=== PATIENT | female | born 1985 | race African-American/Black ===

== ENCOUNTER 2017-10-24 10:28 | Emergency (ER) | payer OTHER ==
[~2017-10-24] VITALS: Ht 160 cm; Wt 54.4 kg
--- NOTE | 2017-10-24 11:02 | PHYS DOC ---
Past History Past Medical History: Asthma Past Surgical History: No Surgical History Smoking: Non-smoker Alcohol Use: Occasionally Drug Use: None Adult General Chief Complaint Chief Complaint: COUGH [facility] HPI 32-year-old female patient with history of asthma complaining of nonproductive cough since yesterday with one episode of vomiting after cough. Patient complaining of sore throat and generalized weakness without fever, diarrhea, myalgia, sick contact, . Patient states she took her home nebulizer without improvement of her condition. Patient works at [employer] and was sent home because of cough. Review of Systems Review of Systems Constitutional: Denies fever or chills [] Eyes: Denies change in visual acuity, redness, or eye pain [] HENT: Reports sore throat and nasal congestion Respiratory: Reports cough and shortness of breath Cardiovascular: No additional information not addressed in HPI [] GI: Denies abdominal pain, nausea, bloody stools or diarrhea [] : Denies dysuria or hematuria [] Musculoskeletal: Denies back pain or joint pain [] Integument: Denies rash or skin lesions [] Neurologic: Denies headache, focal weakness or sensory changes [] Endocrine: Denies polyuria or polydipsia [] All other systems were reviewed and found to be within normal limits, except as documented in this note. Current Medications Current Medications Current Medications Medications (Trade) Dose Ordered Sig/Addi Start Time Stop Time Status Last Admin Dose Admin Albuterol/ Ipratropium (Duoneb) 3 ml 1X ONCE 10/24/17 11:00 10/24/17 11:01 UNV Benzonatate (Tessalon Perle) 200 mg 1X ONCE 10/24/17 11:00 10/24/17 11:01 UNV Methylprednisolone Sodium Succinate (SOLU-Medrol 125MG VIAL) 125 mg 1X ONCE 10/24/17 11:00 10/24/17 11:01 UNV Allergies Allergies Allergies Coded Allergies Type Severity Reaction Last Updated Verified No Known Drug Allergies 10/24/17 No Physical Exam Physical Exam Constitutional: Well developed, well nourished,mild distress, non-toxic appearance. [] HENT: Normocephalic, atraumatic, bilateral external ears normal, oropharynx moist, no oral exudates, nose normal. [] Eyes: PERRLA, EOMI, conjunctiva normal, no discharge. [] Neck: Normal range of motion, no tenderness, supple, no stridor. [] Cardiovascular: Tachycardia, no murmur [] Lungs & Thorax: Bilateral breath sounds clear to auscultation [] Abdomen: Bowel sounds normal, soft, no tenderness, no masses, no pulsatile masses. [] Skin: Warm, dry, no erythema, no rash. [] Back: No tenderness, no CVA tenderness. [] Extremities: No tenderness, no cyanosis, no clubbing, ROM intact, no edema. [] Neurologic: Alert and oriented X 3, normal motor function, normal sensory function, no focal deficits noted. [] Psychologic: Affect normal, judgement normal, mood normal. [] Current Patient Data Vital Signs Vital Signs Date Time Temp Pulse Resp B/P (MAP) Pulse Ox O2 Delivery O2 Flow Rate FiO2 10/24/17 10:28 98.5 120 22 97 Room Air EKG EKG [] Radiology/Procedures Radiology/Procedures [] Course & Med Decision Making Course & Med Decision Making Pertinent Labs reviewed. (See chart for details) Evaluation of patient in ER showed 32-year-old female patient with history of asthma complaining of dry cough and shortness of breath for the last 2 days that not getting better with home inhalers. Patient had stable vital signs in ER and felt better with treatment in ER with Solu-Medrol and DuoNeb. Flu test was negative. Plan discharge patient home with diagnosis of asthma exacerbation. Dragon Disclaimer Dragon Disclaimer This electronic medical record was generated, in whole or in part, using a voice recognition dictation system. Departure Departure: Impression: Primary Impression: Asthma exacerbation attacks Disposition: HOME, SELF-CARE (At 1129) Condition: IMPROVED Referrals: SAMANTHA JOHNSON DO (PCP) Patient Instructions: Asthma, Acute Bronchospasm Additional Instructions: Drink plenty of liquids Follow-up with your primary care physician in 3-5 days Return to ER if not getting better Scripts Albuterol Sulfate (ALBUTEROL SULFATE NEB SOLN ) 2.5 Mg/3 Ml Vial.neb 1 VIAL NEB PRN Q4HRS, #25 VIAL Prov: MERYL REIS MD 10/24/17 Benzonatate (TESSALON PERLE) 100 Mg Capsule 1 CAP PO TID, #21 CAP Prov: MERYL REIS MD 10/24/17 Methylprednisolone (MEDROL) 4 Mg Tab.ds.pk 1 PKG PO UD, #1 PKG Prov: MERYL REIS MD 10/24/17 MERYL REIS MD Oct 24, 2017 11:02
[2017-10-24] MEDS ORDERED: BENZONATATE 100 MG CAPSULE. PO ONE (11:15)
[2017-10-24] MEDS ORDERED: methylPREDNISolone SOD SUCC PF 125 MG/2 ML VIAL. IM ONE (11:15)
[2017-10-24] MEDS ORDERED: IPRATRPIUM/ALBUTEROL 0.5/2.5MG 3 ML NEBU. NEB ONE (11:15)
[2017-10-24 11:20] LABS: INFLUENZA A PATIENT NEGATIVE (NEGATIVE); INFLUENZA B PATIENT NEGATIVE (NEGATIVE)
[2017-10-24 11:27] VITALS: BP 113/71
[2017-10-24] MEDS ORDERED: BENZ100C PO (11:30)
[2017-10-24] MEDS ORDERED: METH4TAB2 PO (11:30)
[2017-10-24] MEDS ORDERED: ALBU2.5V5 NEB (11:35)
== END 2017-10-24 11:35 | disposition home or self-care (01) ==
LOC: ER 10:28
DX: J45.901 Unspecified asthma with (acute) exacerbation (principal)
CPT/HCPCS: 87804; 94640; 96372; 99284; J2930; J7620

== ENCOUNTER 2018-10-14 15:04 | Emergency (ER) | payer OTHER ==
[~2018-10-14] VITALS: Ht 154.9 cm; Wt 64.8 kg
[~2018-10-14 15:04] MED LIST: ALBU2.5V5 NEB; BENZ100C PO; METH4TAB2 PO
[2018-10-14 15:06] VITALS: BP 121/66
[2018-10-14] MEDS ORDERED: METH4TAB2 PO (15:43)
[2018-10-14] MEDS ORDERED: HYDR115S2 PO (15:43)
[2018-10-14] MEDS ORDERED: AZIT250T PO (15:43)
--- NOTE | 2018-10-14 15:44 | PHYS DOC ---
Past History Past Medical History: Asthma Past Surgical History: No Surgical History Smoking: Non-smoker Alcohol Use: None Drug Use: None Adult General Chief Complaint Chief Complaint: COUGH [facility] HPI Patient is a 33 year old female with history of asthma who presents with obtaining of cough and shortness of breath. Patient complaining of nonproductive cough for more than one week with sore throat and nasal congestion. Patient complaining of lower abdominal pain since this morning as a constant pain that getting worse with cough. The patient complaining of nausea and posttussive vomiting. Patient denies fever and chills, chest pain, urinary symptoms, vaginal bleeding or discharge, , sick contact. Review of Systems Review of Systems Constitutional: Denies fever or chills [] Eyes: Denies change in visual acuity, redness, or eye pain [] HENT: Denies nasal congestion, reports sore throat Respiratory: Reports cough and shortness of breath Cardiovascular: No additional information not addressed in HPI [] GI: Reports abdominal pain, nausea, vomiting, denies bloody stools or diarrhea [ ] : Denies dysuria or hematuria [] Musculoskeletal: Denies back pain or joint pain [] Integument: Denies rash or skin lesions [] Neurologic: Denies headache, focal weakness or sensory changes [] Endocrine: Denies polyuria or polydipsia [] All other systems were reviewed and found to be within normal limits, except as documented in this note. Allergies Allergies Allergies Coded Allergies Type Severity Reaction Last Updated Verified No Known Drug Allergies 10/14/18 No Physical Exam Physical Exam Constitutional: Well developed, well nourished, mild acute distress, non-toxic appearance. [] HENT: Normocephalic, atraumatic, bilateral external ears normal, oropharynx moist, no oral exudates, nose normal. [] Eyes: PERRLA, EOMI, conjunctiva normal, no discharge. [] Neck: Normal range of motion, no tenderness, supple, no stridor. [] Cardiovascular:Heart rate regular rhythm, no murmur [] Lungs & Thorax: Bilateral breath sounds clear to auscultation [] Abdomen: Bowel sounds normal, soft, no tenderness, no masses, no pulsatile masses. [] Skin: Warm, dry, no erythema, no rash. [] Back: No tenderness, no CVA tenderness. [] Extremities: No tenderness, no cyanosis, no clubbing, ROM intact, no edema. [] Neurologic: Alert and oriented X 3, normal motor function, normal sensory function, no focal deficits noted. [] Psychologic: Affect normal, judgement normal, mood normal. [] Current Patient Data Vital Signs Vital Signs Date Time Temp Pulse Resp B/P (MAP) Pulse Ox O2 Delivery O2 Flow Rate FiO2 10/14/18 15:06 98.6 80 16 98 Room Air EKG EKG [] Radiology/Procedures Radiology/Procedures [] Course & Med Decision Making Course & Med Decision Making Pertinent Labs reviewed. (See chart for details) Evaluation of patient in ER showed 33-year-old female patient with complaining of nonproductive cough for more than one week and posttussive vomiting. Patient complaining of lower abdominal pain since this morning. Patient had unremarkable physical exam except for dry cough during evaluation. UA was unremarkable. Discharge patient home to diagnose of asthma exacerbation and acute bronchitis. Dragon Disclaimer Dragon Disclaimer This electronic medical record was generated, in whole or in part, using a voice recognition dictation system. Departure Departure: Impression: Primary Impression: Acute asthmatic bronchitis Disposition: HOME, SELF-CARE (154) Condition: STABLE Referrals: SAMANTHA JOHNSON DO (PCP) Patient Instructions: Acute Bronchitis, Asthma Attacks, Prevention, Asthma, Adult Additional Instructions: Drink plenty of liquids Follow-up with your primary care physician in 3-5 days Return to ER if not getting better Scripts Azithromycin (ZITHROMAX) 250 Mg Tablet 1 PKG PO UD for infection, #1 PKG Prov: MERYL REIS MD 10/14/18 Hydrocodone/Chlorphen P-Stirex (Tussionex Pennkinetic Susp) 115 Ml Casandra.er.12h 5 ML PO BID for cough and congestion, #60 ML Prov: MERYL REIS MD 10/14/18 Methylprednisolone (MEDROL) 4 Mg Tab.ds.pk 1 PKG PO UD for inflammation, #1 PKG Prov: MERYL REIS MD 10/14/18 MERYL REIS MD Oct 14, 2018 15:44
[2018-10-14 17:22] LABS: CLARITY,URINE CLEAR; COLOR,URINE YELLOW
[2018-10-14 17:23] LABS: BILIRUBIN,URINE NEG (NEG); GLUCOSE,URINE NEG (NEG); NITRITE,URINE NEG (NEG); UROBILINOGEN,URINE 4 mg/dL (0.2 mg/dL)
== END 2018-10-14 15:50 | disposition home or self-care (01) ==
LOC: ER 15:04
DX: J45.909 Unspecified asthma, uncomplicated (principal); R10.30 Lower abdominal pain, unspecified; R11.2 Nausea with vomiting, unspecified
CPT/HCPCS: 81003; 99283

== ENCOUNTER 2019-08-07 10:11 | Emergency (ER) | payer OTHER ==
[~2019-08-07] VITALS: Ht 154.9 cm; Wt 65.3 kg
[~2019-08-07 10:11] MED LIST changes: +AZIT250T PO; +HYDR115S2 PO
[2019-08-07] MEDS ORDERED: IV NORMAL SALINE 1,000ML 1,000 ML IV ONE ×2 (10:45)
[2019-08-07 10:56] LABS: BASO # 0.1 x10^3/uL (0.0-0.2); BASO % 0 % (0-3); EOS % 0 % (0-3); HEMATOCRIT 37.7 % (36.0-47.0); HEMOGLOBIN 12.7 g/dL (12.0-15.5); LYMPH # 1.7 x10^3/uL (1.0-4.8); LYMPH % 8 % (24-48); MEAN CORPUSCULAR HEMOGLOBIN 28 pg (25-35); MEAN CORPUSCULAR HGB CONC 34 g/dL (31-37); MEAN CORPUSCULAR VOLUME 84 fL (79-100); MONO # 2.7 x10^3/uL (0.0-1.1); MONO % 13 % (0-9); NEUT # 16.7 x10^3uL (1.8-7.7); NEUT % 79 % (31-73); PLATELET COUNT 322 x10^3/uL (140-400); RED CELL DISTRIBUTION WIDTH 16.1 % (11.5-14.5); WHITE BLOOD COUNT 21.1 x10^3/uL (4.0-11.0)
[2019-08-07] MEDS ORDERED: ACETAMINOPHEN 500 MG TABLET PO ONE (11:00)
[2019-08-07] MEDS ORDERED: KETOROLAC 15 MG/ML VIAL. IV ONE (11:00)
[2019-08-07 11:08] LABS: ALBUMIN 3.6 g/dL (3.4-5.0); ALBUMIN/GLOBULIN RATIO 0.9 (1.0-1.7); CALCIUM 8.6 mg/dL (8.5-10.1); CREATININE 0.7 mg/dL (0.6-1.0); GFR 117.3; POTASSIUM 3.1 mmol/L (3.5-5.1); TOTAL BILIRUBIN 0.7 mg/dL (0.2-1.0); TOTAL PROTEIN 7.6 g/dL (6.4-8.2)
[2019-08-07 11:10] LABS: INFLUENZA A PATIENT NEGATIVE (NEGATIVE); INFLUENZA B PATIENT NEGATIVE (NEGATIVE)
[2019-08-07 11:17] LABS: CLARITY,URINE TURBID; COLOR,URINE YELLOW
[2019-08-07 11:18] LABS: BILIRUBIN,URINE SMALL (NEG); GLUCOSE,URINE NEG (NEG)
[2019-08-07 11:19] LABS: BACTERIA,URINE MANY /HPF (0-FEW); GRANULAR CASTS,URINE OCC /HPF; HYALINE CASTS, URINE FEW /HPF; NITRITE,URINE NEG (NEG); RBC,URINE >40 /HPF (0-2); SQUAMOUS EPITHELIAL CELL,UR MOD /LPF; TRICHOMONAS,URINE PRESENT; UROBILINOGEN,URINE 4 mg/dL (0.2 mg/dL); WBC,URINE >40 /HPF (0-4)
--- NOTE | 2019-08-07 11:25 | PHYS DOC ---
Past History Past Medical History: Asthma Past Surgical History: No Surgical History Smoking: Non-smoker Alcohol Use: None Drug Use: None Adult General Chief Complaint Chief Complaint: WEAKNESS/GENERALIZED HPI HPI Patient is a 34-year-old female presenting with chief complaint of flank pain left side headache fever for 5 days no cough has been did have respiratory issues recently but she has not had any of those symptoms no dysuria never felt this way before no abdominal pain no vomiting otherwise healthy just a constant dull left sided nonradiating flank pain and feeling fevers for 5 days Review of Systems Review of Systems Constitutional: Eyes: Denies change in visual acuity, redness, or eye pain [] HENT: Denies nasal congestion or sore throat [] Respiratory: Denies cough or shortness of breath [] Cardiovascular: No additional information not addressed in HPI [] GI: Denies abdominal pain, nausea, vomiting, bloody stools or diarrhea [] : Musculoskeletal: Endocrine: Denies polyuria or polydipsia [] All other systems were reviewed and found to be within normal limits, except as documented in this note. Current Medications Current Medications Current Medications Medications (Trade) Dose Ordered Sig/Addi Start Time Stop Time Status Last Admin Dose Admin Acetaminophen (Tylenol) 1,000 mg 1X ONCE 08/07/19 11:00 08/07/19 11:01 DC 08/07/19 10:51 1,000 MG Ketorolac Tromethamine (Toradol 15mg Vial) 15 mg 1X ONCE 08/07/19 11:00 08/07/19 11:01 DC 08/07/19 10:52 15 MG Sodium Chloride 1,000 ml @ 1,000 mls/hr 1X ONCE 08/07/19 10:45 08/07/19 11:44 Allergies Allergies Allergies Coded Allergies Type Severity Reaction Last Updated Verified No Known Drug Allergies 10/14/18 No Physical Exam Physical Exam Constitutional: Well developed, well nourished, moderate distress, non-toxic appearance. [] HENT: Normocephalic, atraumatic, bilateral external ears normal, oropharynx moist, no oral exudates, nose normal. [] Eyes: PERRLA, EOMI, conjunctiva normal, no discharge. [] Neck: Normal range of motion, no tenderness, supple, no stridor. [] Cardiovascular:tachy no murmur noted Lungs & Thorax: Bilateral breath sounds clear to auscultation [] Abdomen: Bowel sounds normal, soft, no tenderness, no masses, no pulsatile masses. [] Skin: Warm, dry, no erythema, no rash. [] Back: left flank cva ttp Extremities: No tenderness, no cyanosis, no clubbing, ROM intact, no edema. [] Neurologic: Alert and oriented X 3, normal motor function, normal sensory function, no focal deficits noted. [] Psychologic: Affect normal, judgement normal, mood normal. [] Current Patient Data Vital Signs Vital Signs Date Time Temp Pulse Resp B/P (MAP) Pulse Ox O2 Delivery O2 Flow Rate FiO2 08/07/19 11:15 117 20 124/76 (92) 97 Room Air 08/07/19 10:20 102.8 * Moderate Temperature (Fahrenheit): * 102.8 degrees F (97.6-99.5) H Patient Temperature * 102.8 degrees F (97.5-99.5) H Temperature Source * Oral Blood Pressure Systolic * 112 mm Hg (100-140) Blood Pressure Diastolic * 71 mm Hg (60-100) Blood Pressure Mean * 85 mm Hg Blood Pressure Location * Right Arm Blood Pressure Source * Automatic Cuff Pulse Rate * 134 beats per minute (60-90) H Pulse Assessment Method * Monitor Respiratory Rate * 24 breaths per minute (12-24) Oxygen Delivery Method * Room Air Bedside Pulse Oximetry * 96 % Lab Results Laboratory Tests Test 08/07/19 10:30 08/07/19 10:33 Urine Collection Type Unknown Urine Color Yellow Urine Clarity Turbid Urine pH 6.0 Urine Specific [place] 1.020 Urine Protein 100 mg/dl (NEG-TRACE) Urine Glucose (UA) Neg mg/dL (NEG) Urine Ketones (Stick) >=160 mg/dL (NEG) Urine Blood Large (NEG) Urine Nitrite Neg (NEG) Urine Bilirubin Small (NEG) Urine Urobilinogen Dipstick 4 mg/dL (0.2 mg/dL) Urine Leukocyte Esterase Small (NEG) Urine RBC >40 /HPF (0-2) Urine WBC >40 /HPF (0-4) Urine Squamous Epithelial Cells Mod /LPF Urine Bacteria Many /HPF (0-FEW) Urine Hyaline Casts Few /HPF Urine Granular Casts Occ /HPF Urine Mucus Mod /LPF Urine Trichomonas Present Influenza Type A (Rapid) Negative (NEGATIVE) Influenza Type B (Rapid) Negative (NEGATIVE) White Blood Count 21.1 x10^3/uL (4.0-11.0) H Red Blood Count 4.50 x10^6/uL (3.50-5.40) Hemoglobin 12.7 g/dL (12.0-15.5) Hematocrit 37.7 % (36.0-47.0) Mean Corpuscular Volume 84 fL (79-100) Mean Corpuscular Hemoglobin 28 pg (25-35) Mean Corpuscular Hemoglobin Concent 34 g/dL (31-37) Red Cell Distribution Width 16.1 % (11.5-14.5) H Platelet Count 322 x10^3/uL (140-400) Neutrophils (%) (Auto) 79 % (31-73) H Lymphocytes (%) (Auto) 8 % (24-48) L Monocytes (%) (Auto) 13 % (0-9) H Eosinophils (%) (Auto) 0 % (0-3) Basophils (%) (Auto) 0 % (0-3) Neutrophils # (Auto) 16.7 x10^3uL (1.8-7.7) H Lymphocytes # (Auto) 1.7 x10^3/uL (1.0-4.8) Monocytes # (Auto) 2.7 x10^3/uL (0.0-1.1) H Eosinophils # (Auto) 0.0 x10^3/uL (0.0-0.7) Basophils # (Auto) 0.1 x10^3/uL (0.0-0.2) Platelet Estimate Pending Sodium Level 134 mmol/L (136-145) L Potassium Level 3.1 mmol/L (3.5-5.1) L Chloride Level 97 mmol/L (98-107) L Carbon Dioxide Level 22 mmol/L (21-32) Anion Gap 15 (6-14) H Blood Urea Nitrogen 4 mg/dL (7-20) L Creatinine 0.7 mg/dL (0.6-1.0) Estimated GFR (Cockcroft-Gault) 117.3 BUN/Creatinine Ratio 6 (6-20) Glucose Level 101 mg/dL (70-99) H Lactic Acid Level 1.2 mmol/L (0.4-2.0) Calcium Level 8.6 mg/dL (8.5-10.1) Total Bilirubin 0.7 mg/dL (0.2-1.0) Aspartate Amino Transferase (AST) 17 U/L (15-37) Alanine Aminotransferase (ALT) 23 U/L (14-59) Alkaline Phosphatase 87 U/L (46-116) Total Protein 7.6 g/dL (6.4-8.2) Albumin 3.6 g/dL (3.4-5.0) Albumin/Globulin Ratio 0.9 (1.0-1.7) L EKG EKG [] Radiology/Procedures Radiology/Procedures [] Impressions: IMPRESSION: No renal calculi, hydronephrosis or evidence of obstructive uropathy. Calcifications are present in the left pelvis consistent with phleboliths but not associated with the ureter. No other focal abnormality seen in the abdomen or pelvis. Electronically signed by: Milagros Hewitt MD (08/07/2019 12:17 PM) [facility] Course & Med Decision Making Course & Med Decision Making Pertinent Labs and Imaging studies reviewed. (See chart for details) []pyelonephritis with leukocytosis normal bp normal lactic. heart rate tachy resolved with fluids down to 100. pt felt better no kidney stone no comorbiditis offered admission for iv abx v trial of home oral therapy she strongly preferred home trial seems reasonable there was no vomiting return precautions specifically discussed, i told the pt about the leukocytosis and importance of close follow up to ensure resolution of symptoms Dragon Disclaimer Dragon Disclaimer This electronic medical record was generated, in whole or in part, using a voice recognition dictation system. Departure Departure: Impression: Primary Impression: Pyelonephritis Disposition: HOME, SELF-CARE Condition: STABLE Referrals: PCP,NO (PCP) Scripts Cephalexin (CEPHALEXIN) 500 Mg Capsule 1 CAP PO QID for pyelo, #40 CAP Prov: SOFYA CASTILLO MD 08/07/19 SOFYA CASTILLO MD Aug 07, 2019 11:25
[2019-08-07] MEDS ORDERED: metroNIDAZOLE 500 MG TABLET PO ONE (12:00)
[2019-08-07] MEDS ORDERED: ONDANSETRON PF 4 MG/2 ML VIAL. IV ONE (12:00)
[2019-08-07 12:02] LABS: U PREG PATIENT NEGATIVE (NEG)
[2019-08-07] MEDS ORDERED: IV NORMAL SALINE 50ML 50 ML ONE (12:09)
[2019-08-07] MEDS ORDERED: cefTRIAXone SODIUM 1 GM VIAL ONE (12:09)
[2019-08-07 12:17] LABS: % BANDS 14 % (0-9); % LYMPHS 3 % (24-48); % MONOS 8 % (0-10); % SEGS 75 % (35-66)
--- NOTE | 2019-08-07 12:19 | RAD ---
CT abdomen and pelvis without contrast: Reason for examination: Hematuria. Evaluate for nephrolithiasis. Helical images were obtained through the abdomen and pelvis with no intravenous or oral contrast administered. Reconstruction was performed in sagittal and coronal planes. Exposure: One or more of the following individualized dose reduction techniques were utilized for this examination: 1. Automated exposure control 2. Adjustment of the mA and/or kV according to patient size 3. Use of iterative reconstruction technique. The lung bases are clear. The heart size is normal with no pericardial effusion evident. No focal abnormality seen at the liver, spleen, adrenal glands, gallbladder or pancreas. The abdominal aorta and inferior vena cava show no gross abnormalities. The kidneys show no renal masses, renal calculi, hydronephrosis or evidence of obstructive uropathy. No abnormality seen at the appendix. There is a moderate amount of fecal material colon. There is no evidence of diverticulosis or diverticulitis. The small intestinal tract shows no abnormal dilatation or wall thickening and no bowel obstruction is seen. No abnormality seen at the stomach or duodenum. No abnormality seen at the bladder, uterus or ovaries. No free fluid or free air is seen in the abdomen or pelvis. There are calcifications in the left pelvis consistent with phleboliths but not associated with the ureter. No free fluid or free air is seen in the abdomen or pelvis. No acute bony abnormalities are seen. IMPRESSION: No renal calculi, hydronephrosis or evidence of obstructive uropathy. Calcifications are present in the left pelvis consistent with phleboliths but not associated with the ureter. No other focal abnormality seen in the abdomen or pelvis. Electronically signed by: Milagros Hewitt MD (08/07/2019 12:17 PM) [facility]
[2019-08-07 12:20] LABS: PLT ESTIMATE ADEQUATE (ADEQUATE); TOXIC GRANULATION PRESENT; TOXIC VACUOLATION PRESENT
--- NOTE | 2019-08-07 12:22 | RAD ---
AP portable chest 08/07/2019. Reason for exam: Fever. Comparison is made with a study of 11/10/2009. No infiltrate or effusion is seen. Heart size and pulmonary vascularity appear normal. IMPRESSION: No acute disease. Electronically signed by: Jalen Renee Jr., MD (08/07/2019 12:19 PM) [facility] [place]
[2019-08-07 12:25] VITALS: BP 114/67
[2019-08-07] MEDS ORDERED: CEPH500C PO (12:31)
== END 2019-08-07 12:57 | disposition home or self-care (01) ==
LOC: ER 10:11
DX: N12 Tubulo-interstitial nephritis, not specified as acute or chronic (principal); D72.829 Elevated white blood cell count, unspecified; J45.909 Unspecified asthma, uncomplicated
CPT/HCPCS: 36415; 71045; 74176; 80053; 81001; 81025; 83605; 85007; 85025; 87040; 87086; 87804; 96365; 96375; 99285; J0696; J1885; J2405; J7030

== ENCOUNTER 2020-10-08 21:09 | Emergency (ER) | payer BC, OTHER ==
[~2020-10-08] VITALS: Ht 154.9 cm; Wt 70.0 kg
[~2020-10-08 21:09] MED LIST changes: +CEPH500C PO
[2020-10-08] MEDS ORDERED: IV NORMAL SALINE 1,000ML 1,000 ML IV SCH (21:30)
[2020-10-08] MEDS ORDERED: LIDO:MAALOX 1:1 20 ML SINGLE DOSE. PO ONE (21:30)
[2020-10-08] MEDS ORDERED: ONDANSETRON PF 4 MG/2 ML VIAL. IVP ONE (21:30)
--- NOTE | 2020-10-08 21:34 | PHYS DOC ---
Past History Past Medical History: Asthma (IMELDA CHANDRA APRN) Past Surgical History: No Surgical History (IMELDA CHANDRA APRN) Smoking: Non-smoker Alcohol Use: None Drug Use: None (IMELDA CHANDRA APRN) General Adult HPI: HPI: Patient is a 35-year-old female who presents with burning, epigastric pain. Patient states that pain started 15 minutes ago. Pain is worse with laying down and has nausea. Denies vomiting or diarrhea. Patient denies taking anything at home. Patient has history of asthma. (IMELDA CHANDRA APRN) Review of Systems: Review of Systems: Constitutional: Denies fever or chills Eyes: Denies change in visual acuity HENT: Denies nasal congestion or sore throat Respiratory: Denies cough or shortness of breath Cardiovascular: Denies chest pain or edema GI: Epigastric abdominal pain, nausea, denies vomiting, bloody stools or diarrhea : Denies dysuria Musculoskeletal: Denies back pain or joint pain Integument: Denies rash Neurologic: Denies headache, focal weakness or sensory changes Endocrine: Denies polyuria or polydipsia Lymphatic: Denies swollen glands Psychiatric: Denies depression or anxiety (IMELDA CHANDRA APRN) Allergies: Allergies: Allergies Coded Allergies Type Severity Reaction Last Updated Verified No Known Drug Allergies 10/14/18 No (IMELDA CHANDRA APRN) Physical Exam: PE: Constitutional: Well developed, well nourished, no acute distress, non-toxic appearance. [] HENT: Normocephalic, atraumatic, bilateral external ears normal, oropharynx moist, no oral exudates, nose normal. [] Eyes: PERRLA, EOMI, conjunctiva normal, no discharge. [] Neck: Normal range of motion, no tenderness, supple, no stridor. [] Cardiovascular:Heart rate regular rhythm, no murmur [] Lungs & Thorax: Bilateral breath sounds clear to auscultation [] Abdomen: Bowel sounds normal, soft, epigastric tenderness Skin: Warm, dry, no erythema, no rash. [] Back: No tenderness, no CVA tenderness. [] Extremities: No tenderness, no cyanosis, no clubbing, ROM intact, no edema. [] Neurologic: Alert and oriented X 3, normal motor function, normal sensory function, no focal deficits noted. [] Psychologic: Affect normal, judgement normal, mood normal. [] (IMELDA CHANDRA APRN) EKG: EKG: [] (IMELDA CHANDRA APRN) Radiology/Procedures: Radiology/Procedures: [] (IMELDA CHANDRA APRN) Heart Score: Risk Factors: Risk Factors: DM, Current or recent (<one month) smoker, HTN, HLP, family history of CAD, obesity. Risk Scores: Score 0 - 3: 2.5% MACE over next 6 weeks - Discharge Home Score 4 - 6: 20.3% MACE over next 6 weeks - Admit for Clinical Observation Score 7 - 10: 72.7% MACE over next 6 weeks - Early Invasive Strategies (IMELDA CHANDRA APRN) Course & Med Decision Making: Course & Med Decision Making Pertinent Labs and Imaging studies reviewed. (See chart for details) []Patient is a 35-year-old female who presents with burning, epigastric pain. Patient states that pain started 15 minutes ago. Pain is worse with laying down and has nausea. Denies vomiting or diarrhea. Patient denies taking anything at home. Patient has history of asthma. Labs, UA, CT abdomen and pelvis ordered. Zofran and GI cocktail given. Reassessed patient. Patient states that she is still having a lot of pain. Pain is still epigastric. Morphine given for pain. Waiting on CT results and labs. Patient care transferred to Dr. Colindres. (IMELDA CHANDRA APRN) Course & Med Decision Making On reassessment patient was feeling better. Laboratory analysis not concerning. Urinalysis suggestive of urinary tract infection. CT of the abdomen pelvis with no acute process. Discussed all findings with patient and recommended a short course of antibiotics given UTI and follow-up as soon as she can with her primary care physician for a discussion on ED visit and possible repeat labs. Advised [place] to the ED with new or concerning symptoms. Patient grateful, verbalized understanding and agreed with plan of discharge. (SERA COLINDRES MD) Deniseon Disclaimer: Marine Disclaimer: This electronic medical record was generated, in whole or in part, using a voice recognition dictation system. (IMELDA CHANDRA APRN) Departure Departure: Impression: Primary Impression: UTI (urinary tract infection) Disposition: 02 DC/TRF OTHER SHORT TERM HOS Condition: GOOD Referrals: PCP,NO (PCP) RUBINA LEONARD MD Patient Instructions: Urinary Tract Infection Additional Instructions: Please read all the attached information. Please take your antibiotics as prescribed. Please follow-up with your primary care physician as soon as you can to update on ED visit and set up a post ER follow-up visit. Please come back to the ED with new or concerning symptoms. Scripts Cephalexin (CEPHALEXIN) 500 Mg Capsule 1 CAP PO TID for UTI for 5 Days, #15 CAP Prov: SERA COLINDRES MD 10/08/20 IMELDA CHANDRA APRN Oct 08, 2020 21:34 SERA COLINDRES MD Oct 08, 2020 22:53
[2020-10-08 22:01] LABS: BASO # 0.1 x10^3/uL (0.0-0.2); BASO % 1 % (0-3); EOS # 0.3 x10^3/uL (0.0-0.7); EOS % 2 % (0-3); HEMATOCRIT 43.9 % (36.0-47.0); HEMOGLOBIN 14.8 g/dL (12.0-15.5); LYMPH # 6.5 x10^3/uL (1.0-4.8); LYMPH % 46 % (24-48); MEAN CORPUSCULAR HEMOGLOBIN 30 pg (25-35); MEAN CORPUSCULAR HGB CONC 34 g/dL (31-37); MEAN CORPUSCULAR VOLUME 89 fL (79-100); MONO # 0.8 x10^3/uL (0.0-1.1); MONO % 6 % (0-9); NEUT # 6.5 x10^3uL (1.8-7.7); NEUT % 46 % (31-73); PLATELET COUNT 314 x10^3/uL (140-400); RED BLOOD COUNT 4.94 x10^6/uL (3.50-5.40); RED CELL DISTRIBUTION WIDTH 13.4 % (11.5-14.5); WHITE BLOOD COUNT 14.2 x10^3/uL (4.0-11.0)
[2020-10-08 22:04] LABS: PREG TEST PT QUAL NEGATIVE (NEG)
[2020-10-08 22:08] LABS: CALCIUM 9.2 mg/dL (8.5-10.1); CREATININE 0.8 mg/dL (0.6-1.0); POTASSIUM 3.5 mmol/L (3.5-5.1)
[2020-10-08 22:14] LABS: ALBUMIN 4.2 g/dL (3.4-5.0); ALBUMIN/GLOBULIN RATIO 1.2 (1.0-1.7); TOTAL BILIRUBIN 0.2 mg/dL (0.2-1.0); TOTAL PROTEIN 7.8 g/dL (6.4-8.2)
[2020-10-08 22:17] LABS: BILIRUBIN,URINE NEG (NEG); CLARITY,URINE HAZY; COLOR,URINE YELLOW; GLUCOSE,URINE NEG (NEG); NITRITE,URINE NEG (NEG)
[2020-10-08 22:18] LABS: BACTERIA,URINE MANY /HPF (0-FEW); SQUAMOUS EPITHELIAL CELL,UR MOD /LPF
[2020-10-08] MEDS ORDERED: MORPHINE SULFATE 4 MG/ML DISP.SYRIN. IV ONE (22:30)
--- NOTE | 2020-10-08 22:41 | RAD ---
Exam: Chest one view INDICATION: Abdominal pain TECHNIQUE: Frontal view of chest Comparisons: 08/07/2019 FINDINGS: The cardiomediastinal silhouette and pulmonary vessels are within normal limits. The lung and pleural spaces are clear. IMPRESSION: No acute cardiopulmonary process. Electronically signed by: Sherice Chandler MD (10/08/2020 10:39 PM) [facility]
--- NOTE | 2020-10-08 22:48 | RAD ---
Exam: CT of abdomen and pelvis without contrast INDICATION: Abdominal pain TECHNIQUE: Sequential axial images through the abdomen and pelvis obtained without IV contrast. Sagit keenan and coronal reformatted images were reconstructed from the axial data and reviewed. Comparisons: None FINDINGS: Heart size is normal. No pericardial effusion. Visualized lung bases are clear. No pleural effusion. Evaluation of solid organs is limited secondary to noncontrast technique. Liver, spleen, pancreas, gallbladder and adrenals are unremarkable. No perinephric inflammation or hydronephrosis. No renal or ureteral calculi are identified. Bladder is decompressed not well evaluated. Uterus is not enlarged. No abnormal adnexal mass. Large and small bowel are unremarkable. Appendix is normal. No free intra-abdominal air or fluid. No obstruction. Abdominal aorta has a normal course and caliber. No enlarged abdominal lymph nodes are identified. No suspicious osseous lesions or acute fractures. IMPRESSION: No acute process identified within the abdomen or pelvis. Exposure: One or more of the following in the visualized dose reduction techniques were utilized for this examination: 1. Automated exposure control 2. Adjustment of the MA and/or KV according to patient size 3. Use of iterative of reconstructive technique Electronically signed by: Sherice Chandler MD (10/08/2020 10:46 PM) [facility]
[2020-10-08] MEDS ORDERED: CEPH500C PO (22:53)
[2020-10-08 23:05] VITALS: BP 124/77
--- NOTE | 2020-10-09 00:17 | EKG ---
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
== END 2020-10-08 23:05 | disposition short-term general hospital (02) ==
LOC: ER 21:09
DX: N39.0 Urinary tract infection, site not specified (principal); J45.909 Unspecified asthma, uncomplicated
CPT/HCPCS: 36415; 71045; 74176; 80053; 81001; 81025; 83690; 84484; 84703; 85025; 87086; 93005; 96361; 96374; 96375; 99285; J2270; J2405; J7030

== ENCOUNTER 2020-11-04 06:51 | Emergency (ER) | payer BC ==
[~2020-11-04] VITALS: Ht 154.9 cm; Wt 68.9 kg
[2020-11-04] MEDS ORDERED: LIDO:MAALOX 1:1 20 ML SINGLE DOSE. PO ONE (07:15)
[2020-11-04] MEDS ORDERED: FAMOTIDINE 20 MG/2 ML VIAL IVP ONE (07:30)
[2020-11-04] MEDS ORDERED: IV NORMAL SALINE 1,000ML 1,000 ML IV ONE ×2 (07:30→10:45)
[2020-11-04] MEDS ORDERED: METOCLOPRAMIDE HCL 10 MG/2 ML VIAL. IVP ONE (07:30)
--- NOTE | 2020-11-04 07:30 | PHYS DOC ---
Past History Past Medical History: Asthma Past Surgical History: No Surgical History Smoking: Non-smoker Alcohol Use: None Drug Use: None General Adult EDM: Chief Complaint: ABDOMINAL PAIN HPI: HPI: 35 yo past medical history significant for asthma, presents the ED with complaints of upper abdominal pain has been constant, nonradiating, described as pressure, since 3 AM this morning. Patient reports she took ibuprofen but she vomited shortly after-does not take nsaids daily. Reports she has had intermittent symptoms ever since she gave 4 months ago but today sxs have been constant (, no complications). Was seen in ed for the same symptoms 1 month ago and was diagnosed with a UTI. Last bowel movement was normal, brown, 4 AM. Ate spaghetti around 9 PM last night. Also reports pain is in the middle of her thoracic spine is going all the way down. States her friend had similar symptoms and she is concerned about her gallbladder. Is on Depo-Provera (LMP-4 mns ago/after ). Denies any alcohol use or recent binge drinking. Has a PCP appointment with Dr. Otero on November 14. No FH of CTD/erhlos danlos/marfans, sudden under the age of 50, aortic aneurysm or dissection. Review of Systems: Review of Systems: Constitutional: Denies fever or chills Eyes: Denies change in visual acuity HENT: Denies nasal congestion or sore throat Respiratory: Denies cough or shortness of breath or hemoptysis Cardiovascular: Denies chest pain or edema GI: Denies melena, hematochezia, constipation, hematemesis or diarrhea : Denies dysuria Musculoskeletal: Denies joint pain or swelling, no saddle anesthesia, Integument: Denies rash Neurologic: Denies headache, neck stiffness, focal weakness or sensory changes Endocrine: Denies polyuria or polydipsia Lymphatic: Denies swollen glands Psychiatric: Denies depression or anxiety Current Medications: Current Meds: Current Medications Medications (Trade) Dose Ordered Sig/Addi Start Time Stop Time Status Last Admin Dose Admin Multi-Ingredient Mouthwash/Gargle (Gi Cocktail) 20 ml 1X ONCE 11/04/20 07:15 11/04/20 07:16 DC Allergies: Allergies: Allergies Coded Allergies Type Severity Reaction Last Updated Verified No Known Drug Allergies 10/14/18 No Physical Exam: PE: Constitutional: Well developed, well nourished, no acute distress, non-toxic appearance. HENT: Normocephalic, atraumatic, dry mucous membranes Eyes: EOMI, conjunctiva normal, no discharge. Neck: Normal range of motion, supple, Cardiovascular: S1/2 present, regular rhythm Lungs & Thorax: Speaking in full sentences, bilateral equal chest rise, no tachypnea or increased work of breathing Abdomen: soft, + epigastric ttp, positive Pandey sign on physical exam, no pain McBurney's point, no Rovsing sign, no peritonitis or rigidity, does have voluntary guarding Skin: Warm, dry, no erythema, no rash. [] Back: No tenderness, no CVA tenderness. [] Extremities: No tenderness, no cyanosis, no lower extremity edema Neurologic: Alert and oriented X 3, normal motor function, normal sensory function, no focal deficits noted. [] Psychologic: Affect normal, judgement normal, mood normal. [] EKG: EKG: [] Sinus rhythm at 66 bpm, no axis deviation, normal intervals, no T wave inversions, no ST elevations or ST depressions Radiology/Procedures: Radiology/Procedures: []IMAGING REPORT Signed PATIENT: AGUSTINA CASAS ACCOUNT: [id number] : 1985 LOCATION: ER AGE: 35 SEX: F EXAM STATUS: REG ER ORD. PHYSICIAN: LANRE CARVER DO REASON: Chest pain PROCEDURE: CHEST AP ONLY XR CHEST 1V 11/04/2020 7:07 AM INDICATION: Chest pain COMPARISON: 10/08/2020 TECHNIQUE: Portable frontal view of the chest is provided. FINDINGS: The cardiomediastinal silhouette is within normal limits. Lungs are clear. There are no significant pleural effusions. There is no pulmonary vascular congestion. No pneumothorax. No suspicious osseous abnormality. IMPRESSION: There is no acute cardiopulmonary process. Electronically signed by: Immanuel Grayson MD (11/04/2020 7:41 AM) [id number] DICTATED AND SIGNED BY: IMMANUEL GRAYSON MD DATE: 11/04/20 0741 CC: RAFAL VAZ MD; LANRE CARVER DO ~MTH0 0 IMAGING REPORT Signed PATIENT: AGUSTINA CASAS ACCOUNT: [id number] : 1985 LOCATION: ER AGE: 35 SEX: F EXAM STATUS: REG ER ORD. PHYSICIAN: LANRE CARVER DO REASON: ruq pain PROCEDURE: ABDOMEN LTD Ultrasound of the abdomen limited. HISTORY: Right upper quadrant pain Ultrasound was used to evaluate the liver, gallbladder and right upper quadrant. Pancreas was normal in appearance although the tail of the pancreas was incompletely evaluated. Common duct was mildly dilated measuring 9.5 mm at the head of the pancreas. Liver was normal in appearance. Gallbladder was distended. There are multiple gallstones at the neck of the gallbladder. In most areas the gallbladder with wall was not thickened, possible mild gallbladder wall thickening towards the fundus. Right kidney is 10.9 cm in length without a mass or hydronephrosis. There was tenderness to palpation over the gallbladder. IMPRESSION: 1. Cholelithiasis, distended gallbladder. 2. Dilated bile duct. Electronically signed by: Gualberto Roberts MD (11/04/2020 10:04 AM) [id number] DICTATED AND SIGNED BY: GUALBERTO ROBERTS MD DATE: 11/04/20 1002 CC: RAFAL VAZ MD; LANRE CARVER DO ~MTH0 0 Heart Score: C/O Chest Pain: No Risk Factors: Risk Factors: DM, Current or recent (<one month) smoker, HTN, HLP, family history of CAD, obesity. Risk Scores: Score 0 - 3: 2.5% MACE over next 6 weeks - Discharge Home Score 4 - 6: 20.3% MACE over next 6 weeks - Admit for Clinical Observation Score 7 - 10: 72.7% MACE over next 6 weeks - Early Invasive Strategies Course & Med Decision Making: Course & Med Decision Making Pertinent Labs and Imaging studies reviewed. (See chart for details) Concern for symptomatic cholelithiasis/borderline acute cholecystitis. Patient febrile, no tachycardia, no leukocytosis, does not meet SIRS criteria. Will transfer to [facility] for general surgery evaluation, I spoke to Dr. Cooney. Patient is accepted by Dr. Gamble. Patient stable at time of transfer and agrees with this plan. I have spoken with the patient and/or caregivers. I have explained the patient's condition, diagnosis and treatment plan based on the information available to me at this time. I have answered the patient's and/or caregivers questions and answered any concerns. The patient and/or caregivers have as good an understanding of the patient's diagnosis, condition and treatment plan as can be expected at this point. The patient has been stabilized within the capability of the emergency department. The patient will be transported for further care and management or will be moved to an observation or inpatient service. I have communicated with the staff or medical practitioner taking over this patient's care. Dragon Disclaimer: Dragon Disclaimer: This electronic medical record was generated, in whole or in part, using a voice recognition dictation system. Departure Departure: Impression: Primary Impression: Acute cholecystitis due to biliary calculus Additional Impression: Elevated liver function tests Disposition: 05 DC/TRF OTHER TYPE INSTITUTI (to [facility], Dr. Gamble) Condition: STABLE (to [facility], accepted by ) Referrals: RAFAL VAZ MD (PCP) LANRE CARVER DO Nov 04, 2020 07:30
--- NOTE | 2020-11-04 07:44 | RAD ---
XR CHEST 1V 11/04/2020 7:07 AM INDICATION: Chest pain COMPARISON: 10/08/2020 TECHNIQUE: Portable frontal view of the chest is provided. FINDINGS: The cardiomediastinal silhouette is within normal limits. Lungs are clear. There are no significant pleural effusions. There is no pulmonary vascular congestion. No pneumothora x. No suspicious osseous abnormality. IMPRESSION: There is no acute cardiopulmonary process. Electronically signed by: Shell Donohue MD (11/04/2020 7:41 AM) [id number]
[2020-11-04 07:47] LABS: BASO # 0.1 x10^3/uL (0.0-0.2); BASO % 0 % (0-3); EOS # 0.1 x10^3/uL (0.0-0.7); EOS % 1 % (0-3); HEMATOCRIT 45.1 % (36.0-47.0); HEMOGLOBIN 15.1 g/dL (12.0-15.5); LYMPH # 2.7 x10^3/uL (1.0-4.8); LYMPH % 20 % (24-48); MEAN CORPUSCULAR HEMOGLOBIN 30 pg (25-35); MEAN CORPUSCULAR HGB CONC 34 g/dL (31-37); MEAN CORPUSCULAR VOLUME 90 fL (79-100); MONO # 0.8 x10^3/uL (0.0-1.1); MONO % 6 % (0-9); NEUT # 9.8 x10^3uL (1.8-7.7); NEUT % 73 % (31-73); PLATELET COUNT 327 x10^3/uL (140-400); RED BLOOD COUNT 5.03 x10^6/uL (3.50-5.40); RED CELL DISTRIBUTION WIDTH 13.9 % (11.5-14.5); WHITE BLOOD COUNT 13.5 x10^3/uL (4.0-11.0)
[2020-11-04 07:59] LABS: CALCIUM 9.3 mg/dL (8.5-10.1); CREATININE 0.7 mg/dL (0.6-1.0); GFR 116.6; POTASSIUM 3.8 mmol/L (3.5-5.1)
[2020-11-04 08:05] LABS: ALBUMIN 4.2 g/dL (3.4-5.0); ALBUMIN/GLOBULIN RATIO 1.1 (1.0-1.7); TOTAL BILIRUBIN 0.9 mg/dL (0.2-1.0); TOTAL PROTEIN 8.1 g/dL (6.4-8.2)
[2020-11-04 08:11] LABS: BACTERIA,URINE FEW /HPF (0-FEW); BILIRUBIN,URINE NEG (NEG); CLARITY,URINE HAZY; COLOR,URINE AMBER; GLUCOSE,URINE NEG (NEG); NITRITE,URINE NEG (NEG); RBC,URINE 0 /HPF (0-2); SQUAMOUS EPITHELIAL CELL,UR FEW /LPF; UROBILINOGEN,URINE >=8.0 mg/dL (0.2 mg/dL)
[2020-11-04 08:41] LABS: BARBITURATES NEG (NEG); BENZODIAZEPINES NEG (NEG); CANNABINOIDS NEG (NEG); COCAINE NEG (NEG); METHADONE NEG (NEG); OPIATES NEG (NEG); PHENCYCLIDINE NEG (NEG)
[2020-11-04 08:45] LABS: AMPHETAMINE/METHAMPHETAMINE NEG (NEG)
--- NOTE | 2020-11-04 09:29 | EKG ---
[facility] ED [facility] [address] [place] [id number] Test Date: 2020-11-04 Test Time: 07:10:14 Pat Name: AGUSTINA CASAS Department: Room: Gender: F Strand [employer]: : 1985 Requested By: LANRE CARVER Order Number: [id number] Reading MD: Measurements Intervals [place] Rate: 66 P: 90 [place]: 168 QRS: 78 QRSD: 78 T: 24 QT: 408 QTc: 429 Interpretive Statements SINUS RHYTHM NORMAL ECG RI6.02 No previous ECG available for comparison
--- NOTE | 2020-11-04 10:07 | RAD ---
Ultrasound of the abdomen limited. HISTORY: Right upper quadrant pain Ultrasound was used to evaluate the liver, gallbladder and right upper quadrant. Pancreas was normal in appearance although the tail of the pancreas was incompletely evaluated. Common duct was mildly di lated measuring 9.5 mm at the head of the pancreas. Liver was normal in appearance. Gallbladder was d istended. There are multiple gallstones at the neck of the gallbladder. In most areas the gallbladder with wall was not thickened, possible mild gallbladder wall thickening towards the fundus. Right kid kanu is 10.9 cm in length without a mass or hydronephrosis. There was tenderness to palpation over the gallbladder. IMPRESSION: 1. Cholelithiasis, distended gallbladder. 2. Dilated bile duct. Electronically signed by: Gualberto Roberts MD (11/04/2020 10:04 AM) [id number]
[2020-11-04] MEDS ORDERED: IV NORMAL SALINE 50ML 50 ML ONE (10:42)
[2020-11-04] MEDS ORDERED: cefTRIAXone SODIUM 1 GM VIAL ONE (10:43)
[2020-11-04 10:57] VITALS: BP 114/69
== END 2020-11-04 13:42 | disposition short-term general hospital (02) ==
LOC: ER 06:51
DX: K80.20 Calculus of gallbladder without cholecystitis without obstruction (principal); Z20.822 Contact with and (suspected) exposure to COVID-19; K83.8 Other specified diseases of biliary tract; J45.909 Unspecified asthma, uncomplicated
CPT/HCPCS: 36415; 71045; 76705; 80053; 80307; 81001; 81025; 83690; 84484; 85025; 85379; 87426; 93005; 96361; 96365; 96368; 96375; 99285; C9803; J0696; J2765; J3490; J7030; U0003

== ENCOUNTER 2022-01-24 11:02 | Emergency (ER) | payer BC ==
[~2022-01-24] VITALS: Ht 154.9 cm; Wt 68.9 kg
[2022-01-24 11:10] VITALS: BP 137/83
[2022-01-24] MEDS ORDERED: OXYMETAZOLINE 0.05% NASAL SPRAY 30ML BOTTLE. NS ONE (11:30)
[2022-01-24] MEDS ORDERED: IBUPROFEN 600 MG TABLET. PO ONE (11:30)
--- NOTE | 2022-01-24 11:38 | PHYS DOC ---
Past History Past Medical History: Asthma Past Surgical History: No Surgical History Smoking: Non-smoker Alcohol Use: None Drug Use: None General Adult EDM: Chief Complaint: CONGESTION HPI: HPI: Patient is a 37-year-old female presents with headache, sinus pressure since yesterday. Patient states that she took Sudafed yesterday with no relief. Patient reports all of the pressure is on her right side. Patient denies taking anything for symptom control today. Denies fever. Denies shortness of breath or cough. Patient has history of asthma. Up-to-date on immunizations. Patient is fully vaccinated for COVID and influenza. Review of Systems: Review of Systems: ROS At least 10 ROS systems have been reviewed and are negative except as documented in the HPI. General: Negative except as outlined in HPI above. Skin: Negative except as outlined in HPI above. HEENT: Negative except as outlined in HPI above. Neck: Negative except as outlined in HPI above. Respiratory: Negative except as outlined in HPI above.. Cardiovascular: Negative except as outlined in HPI above. Abdomen: Negative except as outlined in HPI above. : Negative except as outlined in HPI above. Back/MSK: Negative except as outlined in HPI above. Neuro: Negative except as outlined in HPI above. Psych: Negative except as outlined in HPI above. Allergies: Allergies: Allergies Coded Allergies Type Severity Reaction Last Updated Verified No Known Drug Allergies 10/14/18 No Physical Exam: PE: Constitutional: Well developed, well nourished, no acute distress, non-toxic appearance, patient is tearful HENT: Normocephalic, atraumatic, bilateral external ears normal, oropharynx moist, no oral exudates, nose normal. [] Eyes: conjunctiva normal, no discharge. [] Neck: Normal range of motion, no tenderness, supple, no stridor. [] Cardiovascular:Heart rate regular rhythm, no murmur [] Lungs & Thorax: Bilateral breath sounds clear to auscultation, no wheezing Abdomen: Bowel sounds normal, soft, no tenderness, no masses, no pulsatile masses. [] Skin: Warm, dry, no erythema, no rash. [] Back: No tenderness, no CVA tenderness. [] Extremities: No tenderness, no cyanosis, no clubbing, ROM intact, no edema. [] Neurologic: Alert and oriented X 3, normal motor function, normal sensory function, no focal deficits noted. [] Psychologic: Affect normal, judgement normal, mood normal. [] Current Patient Data: Vital Signs: Vital Signs Date Time Temp Pulse Resp B/P (MAP) Pulse Ox O2 Delivery O2 Flow Rate FiO2 01/24/22 11:10 98.2 95 18 137/83 (101) 99 Room Air EKG: EKG: [] Radiology/Procedures: Radiology/Procedures: [] Heart Score: C/O Chest Pain: No Risk Factors: Risk Factors: DM, Current or recent (<one month) smoker, HTN, HLP, family history of CAD, obesity. Risk Scores: Score 0 - 3: 2.5% MACE over next 6 weeks - Discharge Home Score 4 - 6: 20.3% MACE over next 6 weeks - Admit for Clinical Observation Score 7 - 10: 72.7% MACE over next 6 weeks - Early Invasive Strategies Course & Med Decision Making: Course & Med Decision Making Pertinent Labs and Imaging studies reviewed. (See chart for details) [] 37-year-old female presents with headache and sinus pressure that started yesterday. Patient reports taking Sudafed with minimal relief. Patient was given ibuprofen along with Afrin while in the ER. OTC Sudafed,, ibuprofen at home treatment. Benadryl at night. Increase fluids. I discussed return precau tions. Advised patient to follow-up with PCP in 5 to 7 days if symptoms or not improving. Patient is appreciative and okay with discharge plan. Marine Disclaimer: Marine Disclaimer: This electronic medical record was generated, in whole or in part, using a voice recognition dictation system. Departure Departure: Impression: Primary Impression: Headache Qualified Codes: R51.9 - Headache, unspecified Additional Impression: Sinus pressure Disposition: HOME / SELF CARE / HOMELESS Condition: STABLE Referrals: RAFAL VAZ MD (PCP) Patient Instructions: Sinus Headache, [id number] Additional Instructions: You are seen in the emergency room for sinus congestion headache. You were given ibuprofen along with nasal spray to help with symptoms. You can continue taking ibuprofen, 600 mg, every 6-8 hours for pain. Continue taking Sudafed and Afrin as well, to help with symptoms. You can also take Benadryl at night. Make sure you are drinking plenty of fluids. If your symptoms are not improving in 5 to 7 days follow-up with your PCP or return to the emergency room. EMERGENCY DEPARTMENT GENERAL DISCHARGE INSTRUCTIONS Thank you for coming to [facility] (ED) today and trusting us with you care. We trust that you had a positivie experience in our Emergency Department. If you wish to speak to the department management, you may call the director at . YOUR FOLLOW UP INSTRUCTIONS ARE FOLLOWS: 1. Do you have a private Doctor? If you do not have a private doctor, please ask for a resource list of physicians or clinics that may be able to assist you with follow up care. 2. The Emergency Physician has interpreted your x-rays. The X-Ray specialist will also review them. If there is a change in the findings, you will be notified in 48 hours when at all possible. 3. A lab test or culture has been done, your results will be reviewed and you will be notified if you need a change in treatment. ADDITIONAL INSTRUCTIONS AND INFORMATION: 1. Your care today has been supervised by a physician who is specially trained in emergency care. Many problems require more than one evaluation for a complete diagnosis and treatment. We recommend that you schedule your follow up appointment as recommended to ensure complete treatment of you illness or injury. If you are unable to obtain follow up care and continue to have a problem, or if your condition worsens, we recommend that you return to the ED. 2. We are not able to safely determine your condition over the phone nor are we able to give sound medical advice over the phone. For these safety reasons, if you call for medical advice we will ask you to come to the ED for further evaluation. 3. If you have any questions regarding these discharge instructions please call the ED at [phone]. SAFETY INFORMATION: In the interest of safety, wellness, and injury prevention; we encourage you to wear your sealbelt, if you smoke; quite smoking, and we encourage family to use a protective helmet for bicycling and other sporting events that present an increased risk for head injury. IF YOUR SYMPTOMS WORSEN OR NEW SYMPTOMS DEVELOP, OR YOU HAVE CONCERNS ABOUT YOUR CONDITION; OR IF YOUR CONDITION WORSENS WHILE YOU ARE WAITING FOR YOUR FOLLOW UP APPOINTMENT; EITHER CONTACT YOUR PRIMARY CARE DOCTOR, THE PHYSICIAN WHOSE NAME AND NUMBER YOU WERE GIVEN, OR RETURN TO THE ED IMMEDIATELY. IMELDA CHANDRA APRN January 24, 2022 11:38
== END 2022-01-24 11:52 | disposition home or self-care (01) ==
LOC: ER 11:02
DX: R51.9 Headache, unspecified (principal); J32.9 Chronic sinusitis, unspecified; J45.909 Unspecified asthma, uncomplicated
CPT/HCPCS: 99283